=== PATIENT | female | born 1960 | race Caucasian/White ===

== ENCOUNTER 2018-12-01 05:40 | Day surgery (SDC) | payer BC ==
[~2018-12-01] VITALS: Ht 160 cm; Wt 87.1 kg
[2018-12-01] MEDS ORDERED: SEVOFLURANE 15 MIN GAS INH ONE (07:20)
[2018-12-01] MEDS ORDERED: LR 1,000 ML IV.SOLN IV ONE (07:20)
[2018-12-01] MEDS ORDERED: NS IRRIG SOLN 1000 ML IR ONE (07:20)
[2018-12-01] MEDS ORDERED: MIDAZOLAM HCL 5 MG/5 ML VIAL IVP ONE (07:20)
[2018-12-01] MEDS ORDERED: DEXAMETHASONE SOD PHOSPHATE 4 MG/ML VIAL IVP ONE (07:20)
[2018-12-01] MEDS ORDERED: KETOROLAC TROMETHAMINE 30 MG VIAL IVP ONE (07:20)
[2018-12-01] MEDS ORDERED: CIPROFLOXACIN HCL/DEXAMET 7.5 ML OTIC DROPS.SUSP OT ONE ×2 (07:20)
[2018-12-01] MEDS ORDERED: ONDANSETRON HCL 4 MG/2 ML VIAL IVP ONE (07:20)
[2018-12-01] MEDS ORDERED: PROPOFOL 200MG/ 20ML VIAL (DIPRIVAN) IV ONE (07:20)
[2018-12-01] MEDS ORDERED: fentaNYL CITRATE/PF 100 MCG/2 ML AMP IVP ONE (07:20)
[2018-12-01] MEDS ORDERED: LR 1,000 ML IV SCH (08:14)
[2018-12-01] MEDS ORDERED: MEPERIDINE HCL/PF 25 MG/ML DISP.SYRIN IVP PRN (08:15)
[2018-12-01] MEDS ORDERED: HYDROmorphone 2 MG/ML VIAL IVP PRN ×2 (08:15)
[2018-12-01] MEDS ORDERED: HYDROmorphone 1 MG INJ. 1 MG/ML AMPUL IVP PRN (08:15)
[2018-12-01 09:46] VITALS: BP_SYST 114
== END 2018-12-01 10:51 | disposition home or self-care (01) ==
LOC: SMU 05:40 → SDS 05:40
PROVIDERS: ATTEND Otolaryngology
DX: H65.03 Acute serous otitis media, bilateral (principal); F33.9 Major depressive disorder, recurrent, unspecified; M79.7 Fibromyalgia; E66.01 Morbid (severe) obesity due to excess calories; G47.33 Obstructive sleep apnea (adult) (pediatric); E03.9 Hypothyroidism, unspecified; E78.5 Hyperlipidemia, unspecified; Z68.30 Body mass index [BMI] 30.0-30.9, adult; F41.9 Anxiety disorder, unspecified; H68.101 Unspecified obstruction of Eustachian tube, right ear
CPT/HCPCS: 69436; J1100; J1885; J2250; J2405; J2704; J3010; J7120; L8699